=== PATIENT | female | born 1980 | race Caucasian/White ===

== ENCOUNTER 2020-08-15 17:27 | Emergency (ER) | payer OTHER, SELFPAY ==
--- NOTE | ~2020-08-15 | XR_ITS ---
EXAMINATION: XR chest 2V DATE: 08/15/2020 18:57 INDICATION: Left anterior chest and shoulder pain TECHNIQUE: PA and lateral views of the chest are obtained. COMPARISON: None available FINDINGS: The lungs are free of acute opacities. There is no pleural effusion or pneumothorax. The ca rdiomediastinal silhouette is normal. There are 27 degrees of upper lumbar dextroscoliosis. IMPRESSION: 1. No acute cardiopulmonary abnormality. Reviewed, dictated and finalized at location A. RELEASE WORKER
--- NOTE | ~2020-08-15 | XR_ITS ---
EXAMINATION: XR shoulder LT min 2V INDICATION: Left shoulder pain TECHNIQUE: Four views of the left shoulder are submitted. COMPARISON: None FINDINGS: Normal alignment. No fracture. Glenohumeral and acromioclavicular joint spaces are normal. Soft tissues are unremarkable. IMPRESSION: 1. No acute osseous abnormality. Reviewed, dictated and finalized at location A. SETTER
--- NOTE | 2020-08-15 17:29 | ECG_ITS ---
Measurements Intervals [place] Rate: 80 P: 55 PA: 165 QRS: 22 QRSD: 85 T: 40 QT: 345 QTc: 399 Interpretive Statements SINUS RHYTHM WITH SINUS ARRHYTHMIA POSSIBLE LEFT ATRIAL ENLARGEMENT INCOMPLETE RIGHT BUNDLE BRANCH BLOCK BASELINE WANDER- III, V1-V3 BORDERLINE ECG Electronically Signed On 08-15-2020 19:28:46 CONSOLE ASSEMBLER by Saul Zapata D.O.
[2020-08-15 17:37] VITALS: BP 137/99; PULSE 79; RESP 17; TEMP 36.2; O2SAT 100
--- NOTE | 2020-08-15 18:15 | ED.DIZZY ---
HPI - Dizziness General Chief Complaint: Dizziness Stated Complaint: Dizziness , left shoulder pain Time Seen by Provider: 08/15/20 18:15 Source: patient Mode of arrival: ambulatory Limitations: no limitations History of Present Illness HPI Narrative: Patient is a 40 yo female who is presenting for evaluation of dizziness. Dizziness is intermittent in nature, associated with a spinning sensation. No nausea or vomiting. Pt states she feels as if she is on a merry go round. Pt also reporting a dull pain in her left shoulder. No pressure or injury. No associated chest pain, dyspnea, nausea or vomiting. No vision changes. No aggravating or relieving symptoms. No numbness or weakness. Pt has been ambulating. Related Data Allergies Allergy/AdvReac Type Severity Reaction Status Date / Time No Known Allergies Allergy Unverified 03/07/14 09:08 Review of Systems Review of Systems: Narrative: CONSTITUTIONAL: Denies fever EYES: Denies visual changes ENT: Denies rhinorrhea, congestion, sore throat, or otalgia. CARDIOVASCULAR: Denies chest pain, palpitations, or edema. RESPIRATORY: Denies cough or dyspnea. GASTROINTESTINAL: Denies abdominal pain, nausea, vomiting, or diarrhea. GENITOURINARY: Denies dysuria or hematuria. SKIN: Denies rash or itching. MUSCULOSKELETAL: Denies back pain, joint pain, or myalgia. NEUROLOGIC: Denies headache, numbness, or weakness. Reports intermittent dizziness PMFSH Past Medical History Medical History (Updated 08/15/20 @ 20:02 by Mavis Castrejon MD) Nephrolithiasis Surgical History Surgical History (Updated 08/15/20 @ 18:31 by Mavis Castrejon MD) History of hysterectomy Social History Social History (Updated 08/15/20 @ 18:31 by Mavis Castrejon MD) Smoking status: Never smoker Substance use: never Living arrangements: with family Gender identity (if verbalized by the patient): Female Exam Narrative: Exam Narrative: GENERAL: Awake, alert, conversant HEAD: Normocephalic, atraumatic. EYES: PERRLA and EOMI. ENT: Nares clear, no rhinorrhea or epistaxis. Mucous membranes moist. TMs are clear bilaterally. NECK: Supple. CHEST: No respiratory distress, breathing even and non labored HEART: Regular rate, sinus rhythm ABDOMEN:Non distended, non tender EXTREMITIES: Normal range of motion. No edema. SKIN: Warm, dry, no rash. NEURO:No focal deficits. Alert and oriented x3. Finger to nose intact bilaterally. EOMs intact without nystagmus. No facial droop/asymmetry noted bilaterally. Grimace intact. Intact sensation in face. Hearing intact bilaterally. Shoulder shrug intact. Strength 5/5 bilateral upper extremities. Strength 5/5 bilateral lower extremities. Reflexes 2+ patellar. Heel to moses intact bilaterally. Ambulatory with a narrow base, steady gait, no ataxia. Course Vital Signs Vital signs: Vital Signs Temperature 36.2 C L 08/15/20 17:37 Pulse Rate 79 08/15/20 17:37 Respiratory Rate 17 08/15/20 17:37 Blood Pressure 137/99 H 08/15/20 17:37 Pulse Oximetry 100 08/15/20 17:37 Temperature 36.2 C L 08/15/20 17:37 Pulse Rate 79 08/15/20 17:37 Respiratory Rate 17 08/15/20 17:37 Blood Pressure 137/99 H 08/15/20 17:37 Pulse Oximetry 100 08/15/20 17:37 MDM - Dizziness MDM Narrative Medical decision making narrative: The patient was evaluated for dizziness. Based on neurological assessment and clinical symptoms, patient's vertigo is felt to be likely peripheral in origin. There is no diplopia, dysarthria or dysphagia. Patient's gait is stable and there are no cerebral deficits to exam. Risk factor for central causes of vertigo reviewed and felt to be unlikely. Patient is ambulatory with a narrow base, steady gait without ataxia. Her shoulder pain is possibly musculoskeletal, she does not have any chest pain, shortness of breath, no signs of PE. Patient felt likely reasonable for continued outpatient management and risks are felt to outweigh benefits for further
[2020-08-15 19:17] LABS: Basophils Percent Auto 0.4 % (0.2-1.2); Eosinophils Absolute Auto 0.2 K/mm3 (0-0.3); Eosinophils Percent Auto 1.5 % (0-4.4); Hematocrit 43.4 % (37.0-47.0); Hemoglobin 15.1 g/dL (12.0-15.0); Immature Granulocyte Absolute 0.02 K/mm3 (0.00-0.031); Immature Granulocyte Percent A 0.2 % (0-0.5); Lymphocytes Absolute Auto 2.47 K/mm3 (0.9-3.2); Lymphocytes Percent Auto 25.4 % (18.3-44.2); Mean Corpuscular HGB Conc 34.8 g/dl (32-36); Mean Corpuscular Hemoglobin 31.1 pg (26-34); Mean Corpuscular Volume 89.3 fl (80-100); Mean Platelet Volume 10.5 fl (7.4-10.4); Monocytes Absolute Auto 0.5 K/mm3 (0.1-0.6); Monocytes Percent Auto 4.8 % (2.6-8.5); Neutrophils Absolute Auto 6.6 K/mm3 (1.3-6.7); Neutrophils Percent Auto 67.7 % (45.5-73.1); Platelet Count Result 184 k/mm3 (150-375); Red Blood Count 4.86 M/mm3 (4.2-5.4); Red Cell Distribution Width 11.9 % (11.5-14.5); White Blood Count 9.7 K/mm3 (4.5-10.0)
[2020-08-15] MEDS: MECLIZINE HCL 25 MG TABLET PO (19:17)
[2020-08-15 19:30] LABS: Anion Gap 7 mmol/L (8-16); Blood Urea Nitrogen 9 mg/dL (7-17); Calcium 9.5 mg/dL (8.4-10.2); Carbon Dioxide 29 mmol/L (22-30); Chloride 104 mmol/L (98-107); Estimated CRCL calculation 93 ml/min; Estimated Glomerular Filt Rate > 60; Glucose 101 mg/dL (65-105); Potassium 3.9 mmol/L (3.4-5.0); Sodium 140 mmol/L (137-145)
[2020-08-15 19:34] LABS: INR 0.9; Prothrombin Time 12.5 Seconds (11.1-14.7)
[2020-08-15 19:35] LABS: Partial Thromboplastin Time 24.1 SECONDS (22.3-36.8)
[2020-08-15 19:41] LABS: Troponin I < 0.012 ng/mL (0.000-0.034)
[2020-08-15 20:57] VITALS: BP 128/100; PULSE 75; RESP 17; O2SAT 100
== END 2020-08-15 21:02 | disposition home or self-care (01) ==
PROVIDERS: Emergency Provider Emergency Medicine; PCP Emergency Medicine
DX: H81.10 Benign paroxysmal vertigo, unspecified ear (principal); Z87.442 Personal history of urinary calculi; I45.10 Unspecified right bundle-branch block; R94.31 Abnormal electrocardiogram [ECG] [EKG]
CPT/HCPCS: 36415; 71046; 73030; 80048; 84484; 85025; 85610; 85730; 93005; 99284; A9270

== ENCOUNTER 2020-09-20 13:13 | Outpatient (CLI) | payer OTHER, SELFPAY ==
--- NOTE | 2020-09-20 | ECHO_ITS ---
Patient Info Name: Erin Delacruz Age: 40 years : 1980 Gender: Female Ht: 64 in Wt: 142 lbs BSA: 1.72 m2 HR: 63 bpm BP: 128 / 90 mmHg Technical Quality: Good Exam Date: 09/20/2020 1:44 PM Exam Location: [facility] Patient Status: Outpatient Admit Date: 09/20/2020 Staff Ordering Physician: Trever Araya MD Electrotype Finisher: Luther Sanchez RDCS Attending Provider: Trever Araya MD Referring Physician: Marshal BACA; Exam Type: CA echo doppler color flow Study Info Indications I45.10 - Unspecified right bundle-branch block Complete two-dimensional, color flow and Doppler transthoracic echocardiogram is performed. Strain analysis performed. Summary 1. Complete two-dimensional, color flow and Doppler transthoracic echocardiogram is performed. 2. Left ventricular chamber dimension is normal. 3. Left ventricular systolic function is normal, estimated at 65-70%. 4. The left ventricular diastolic function is normal. 5. E/e' 8 is minimally elevated. 6. Global longitudinal strain is normal at -20.0%. 7. There is trace tricuspid valve regurgitation. 8. No pulmonary hypertension, estimated pulmonary arterial systolic pressure is 27 mmHg. Left Ventricle E/e' 8 is minimally elevated. Global longitudinal strain is normal at -20.0%. Left ventricular chamber dimension is normal. Left ventricular systolic function is normal, estimated at 65-70%. The left ventricular diastolic function is normal. Right Ventricle Right ventricular chamber dimension is normal. Right ventricular systolic function is normal. Left Atria Left atrial chamber dimension is normal. Right Atria Right atrial chamber dimension is normal. Aortic Valve The aortic valve is trileaflet. There is no aortic valve stenosis. There is no aortic valve regurgitation. Pulmonic Valve There is no pulmonic regurgitation. Mitral Valve There is no mitral valve stenosis. There is no mitral valve regurgitation. Tricuspid Valve There is trace tricuspid valve regurgitation. No pulmonary hypertension, estimated pulmonary arterial systolic pressure is 27 mmHg. Pericardium/Pleural There is no pericardial effusion. Inferior Vena Cava Normal inferior vena cava with >50% collapse upon inspiration consistent with normal right atrial pressure, 5 mmHg. Aorta The aortic root size at the sinus of Valsalva is normal. Left Ventricular Outflow Tract Name Value Normal LVOT 2D LVOT Diameter 2.0 cm LVOT Doppler LVOT Peak Gradient 4 mmHg LVOT Mean Gradient 2 mmHg LVOT VTI 20 cm LVOT VTI/AV VTI Ratio 0.9 LVOT Stroke Volume 60 ml LVOT CO 4.4 l/min LVOT CI 2.6 l/min/m2 Mitral Valve Name Value Normal MV Doppler
== END 2020-09-20 13:14 | disposition home or self-care (01) ==
PROVIDERS: PCP Emergency Medicine; Visit Provider Emergency Medicine
DX: I45.10 Unspecified right bundle-branch block (principal)
CPT/HCPCS: 93306

== ENCOUNTER → 2022-04-15 08:01 | Outpatient (CLI) | payer OTHER, SELFPAY ==
--- NOTE | ~2022-04-15 | US_ITS ---
US abdomen complete EXAMINATION: US Abdomen Complete INDICATION: Abdomen pain. PROCEDURE: Realtime High Resolution abdomen ultrasound. COMPARISON: No prior studies for comparison FINDINGS: There is a 4 mm gallbladder polyp. No gallstones, gallbladder wall thickening or pericholec ystic fluid. Common bile duct measures 4 mm. Liver echotexture within normal limits without focal mass. Pancreas within normal limits. Pancreati c tail is obscured by bowel gas. Spleen is enlarged measuring 13 cm. Renal echotexture is within nor mal limits bilaterally without hydronephrosis, contour deforming mass or renal stone. Right kidney me asures 10.3 cm. Left kidney measures 10.4 cm. Visualized aspects of the aorta and IVC are within normal limits. Portal vein is patent. No sonograph ic Raya's sign indicated by the technologist. IMPRESSION: 1: Gallbladder polyp measuring 4 mm. 2: Splenomegaly. Reviewed, dictated and finalized at location A.
== END ==
PROVIDERS: PCP Emergency Medicine; Visit Provider Emergency Medicine
DX: R10.9 Unspecified abdominal pain (principal); K82.4 Cholesterolosis of gallbladder; R16.1 Splenomegaly, not elsewhere classified
CPT/HCPCS: 76700

== ENCOUNTER → 2022-05-23 14:46 | Outpatient (CLI) | payer OTHER, SELFPAY ==
--- NOTE | ~2022-05-23 | MM_ITS ---
EXAMINATION: MM screening luis a BI w ibeth HISTORY: Screening mammogram TECHNIQUE: Craniocaudal and mediolateral oblique 3-D tomosynthesis images were obtained and synthetic 2-D images were generated. Bilateral rotated lateral CC views. CAD analysis was submitted and interp reted. COMPARISON: No prior mammogram is available for comparison at this institution. BREAST PARENCHYMAL COMPOSITION: The breasts are heterogeneously dense, which may obscure small masses . FINDINGS: There is no evidence of suspicious mass, calcification, or architectural distortion to sugg est malignancy in either breast. There has been no suspicious interval change. IMPRESSION: 1. No mammographic evidence of malignancy. 2. Recommend routine screening mammography in one year. BI-RADS Category 1: Negative Reviewed, dictated and finalized at location A.
== END ==
PROVIDERS: PCP Emergency Medicine; Visit Provider Nurse Practitioner
DX: Z12.31 Encounter for screening mammogram for malignant neoplasm of breast (principal)
CPT/HCPCS: 77063; 77067

== ENCOUNTER → 2023-03-13 08:34 | Outpatient (CLI) | payer OTHER, BC, SELFPAY ==
--- NOTE | ~2023-03-13 | US_ITS ---
Pelvic ultrasound. Clinical History: Pelvic pain Technique: Realtime transabdominal and transvaginal scanning of the pelvis was performed. Color flow Doppler and Doppler spectral analysis were performed. Findings: The uterus is absent, compatible prior hysterectomy. The right ovary measures 3.3 x 2.3 x 1.9 cm. No significant right ovarian or adnexal mass is seen. The left ovary measures 5.0 x 6.0 x 3.2 cm. Left ovarian cystic mass measures 4.5 cm in diameter, wit h low-level internal echoes.. There is no evidence of free fluid in the cul de sac. Impression: 4.5 cm left ovarian cyst, with low-level internal echoes. Consider hemorrhagic cyst or endometrioma. Status post hysterectomy. Reviewed, dictated and finalized at location . Impression: 4.5 cm left ovarian cyst, with low-level internal echoes. Consider hemorrhagic cyst or endometrioma. Status post hysterectomy.
--- NOTE | ~2023-03-13 | US_ITS ---
Limited Abdominal Sonogram: Real-time sonographic imaging of the right upper quadrant was performed. Clinical History: Gallbladder polyp Findings: The liver appears normal with no evidence of mass lesion or bile duct dilatation. Main por antonette vein demonstrates normal direction of flow. The gallbladder is well distended, with 5 mm gallblad wendy wall polyp. The common bile duct measures 4 mm. The visualized pancreas, aorta, and IVC are unre markable. Impression: 5 mm gallbladder wall polyp. Reviewed, dictated and finalized at location . Impression: 5 mm gallbladder wall polyp.
== END ==
PROVIDERS: PCP Emergency Medicine; Visit Provider Nurse Practitioner
DX: R10.2 Pelvic and perineal pain (principal); R19.09 Other intra-abdominal and pelvic swelling, mass and lump; N83.202 Unspecified ovarian cyst, left side; Z90.710 Acquired absence of both cervix and uterus; K82.4 Cholesterolosis of gallbladder
CPT/HCPCS: 76705; 76830

== ENCOUNTER → 2023-05-09 14:16 | Outpatient (CLI) | payer OTHER, BC, SELFPAY ==
--- NOTE | ~2023-05-09 | US_ITS ---
EXAMINATION: US pelvic complete w TV DATE: 05/09/2023 14:44 INDICATION: Ovarian cyst. TECHNIQUE: Multiple transabdominal and transvaginal sonographic images of the pelvis were obtained. COMPARISON: Ultrasound 03/13/23 FINDINGS: TRANSABDOMINAL ULTRASOUND: The uterus is absent. There is no free fluid in the pelvis. TRANSVAGINAL ULTRASOUND: The right ovary measures 2.4 x 1.7 x 3.0 cm. The left ovary measures 5.4 x 4.9 x 4.2 cm. In the left ovary, there is a 4.4 cm mixed hypoechoic and isoechoic mass. There is vascular flow in the ovaries. IMPRESSION: 1. 4.4 cm mass in left ovary with change in echogenicity from 03/13/2023 without change in size. The di fferential diagnosis includes endometrioma and hemorrhagic cyst. Neoplasm cannot be excluded. Conside r pelvis MRI without and with contrast. Reviewed, dictated and finalized at location E. IMPRESSION: 1. 4.4 cm mass in left ovary with change in echogenicity from 03/13/2023 without change in size. The differential diagnosis includes endometrioma and hemorrhagi c cyst. Neoplasm cannot be excluded. Consider pelvis MRI without and with contr ast.
== END ==
PROVIDERS: PCP Emergency Medicine; Visit Provider Obstetrics & Gynecology Gynecology
DX: N83.202 Unspecified ovarian cyst, left side (principal)
CPT/HCPCS: 76830; 76856

== ENCOUNTER → 2023-08-11 14:14 | Outpatient (CLI) | payer OTHER, BC, SELFPAY ==
--- NOTE | ~2023-08-11 | US_ITS ---
EXAMINATION: US pelvic complete w TV DATE: 08/11/2023 14:39 INDICATION: Follow-up left ovarian cyst. Comparison:Ultrasound dated 05/09/2023 TECHNIQUE: Multiple transabdominal and endovaginal sonographic images of the pelvis performed. FINDINGS: The uterus is surgically absent. The right ovary measures 2.9 x 2.8 x 1.6 cm and the left ovary measures 4.6 x 4.2 x 3.9 cm. There is a persistent complicated cyst with low-level internal echoes within the left ovary measuring 3.9 x 3. 7 x 3.3 cm. There is no free fluid in the pelvis. There are no abnormal masses seen on either side. IMPRESSION: 1. Persistent complicated cyst of the left ovary measuring 3.9 cm. Reviewed, dictated and finalized at location B. NIC PREPARATION TECHNICIAN
== END ==
PROVIDERS: PCP Emergency Medicine; Visit Provider Obstetrics & Gynecology Gynecology
DX: N83.292 Other ovarian cyst, left side (principal)
CPT/HCPCS: 76830; 76856

== ENCOUNTER 2023-12-19 15:02 | Outpatient (CLI) | payer OTHER, BC, SELFPAY ==
--- NOTE | ~2023-12-19 | MM_ITS ---
EXAMINATION: MM screening luis a BI w ibeth HISTORY: Screening TECHNIQUE: Craniocaudal and mediolateral oblique 3-D tomosynthesis images were obtained and synthetic 2-D images were generated. CAD analysis was submitted and interpreted. COMPARISON: 05/23/2022 BREAST PARENCHYMAL COMPOSITION: Dense: The breasts are heterogeneously dense, which may obscure small masses FINDINGS: There is no evidence of suspicious mass, calcification, or architectural distortion to sugg est malignancy in either breast. There has been no suspicious interval change. IMPRESSION: 1. No mammographic evidence of malignancy. 2. Recommend routine screening mammography in one year. BI-RADS Category 1: Negative Reviewed, dictated and finalized at location A.
== END 2023-12-19 15:03 ==
PROVIDERS: PCP Nurse Practitioner; Visit Provider Nurse Practitioner
DX: Z12.31 Encounter for screening mammogram for malignant neoplasm of breast (principal)
CPT/HCPCS: 77063; 77067

== ENCOUNTER 2024-02-12 09:38 | Outpatient (CLI) | payer OTHER, BC, SELFPAY ==
--- NOTE | ~2024-02-12 | US_ITS ---
US pelvic complete w TV Ordering provider: Pepper Acosta MD History: . L ovarian cyst . Comparison: None. Technique: Transabdominal and endovaginal ultrasound of the pelvis (Doppler ultrasound interrogation techniques used as needed for this exam.) FINDINGS: CERVIX: Normal. UTERUS: Status post hysterectomy. CUL DE SAC: No free fluid. RIGHT OVARY: Normal in size measuring 2.8 x 2.6 x 1.8 cm. Normal echotexture. Doppler vascular flow p resent. LEFT OVARY: Normal in size measuring 5.4 x 4.4 x 4.5 cm. . Doppler vascular flow present. Left ovaria n cyst measuring 4.2 x 3.3 x 3.9 cm with internal echoes and solid part which may be ovarian tissue o r a mass follow-up is advised... ADNEXA: Normal. No mass. IMPRESSION: Left ovarian cyst measuring 4.2 x 3.3 x 3.9 cm with internal echoes and possibly solid portion. The d ifferential includes hemorrhagic cyst. A cystic mass cannot be excluded. Follow-up in 3 months advise d. Otherwise, normal pelvic ultrasound. Reviewed, dictated and finalized at location A. IMPRESSION: Left ovarian cyst measuring 4.2 x 3.3 x 3.9 cm with internal echoes and possibl y solid portion. The differential includes hemorrhagic cyst. A cystic mass yeyo ot be excluded. Follow-up in 3 months advised. Otherwise, normal pelvic ultraso und.
== END 2024-02-12 09:39 ==
LOC: GOSHIMG 09:39
PROVIDERS: PCP Emergency Medicine; Visit Provider Obstetrics & Gynecology Gynecology
DX: N83.202 Unspecified ovarian cyst, left side (principal)
CPT/HCPCS: 76830; 76856

== ENCOUNTER 2024-03-22 08:16 | Outpatient (CLI) | payer OTHER, BC, SELFPAY ==
--- NOTE | ~2024-03-22 | US_ITS ---
Limited Abdominal Sonogram: Real-time sonographic imaging of the right upper quadrant was performed. Clinical History: Cholesterolosis of gallbladder COMPARISON: 03/13/2023 Findings: The liver appears normal with no evidence of mass lesion or bile duct dilatation. Main por antonette vein demonstrates normal direction of flow. There is 6 mm gallbladder wall polyp. No gallstone ev ident. The common bile duct measures 5 mm. The visualized pancreas, aorta, and IVC are unremarkable. Impression: 6 mm gallbladder wall polyp, similar to prior exam. Reviewed, dictated and finalized at location M. Impression: 6 mm gallbladder wall polyp, similar to prior exam.
== END 2024-03-22 08:17 ==
LOC: GOSHIMG 08:17
PROVIDERS: PCP Emergency Medicine; Visit Provider Surgery
DX: K82.4 Cholesterolosis of gallbladder (principal)
CPT/HCPCS: 76705

== ENCOUNTER 2024-06-04 14:20 | Outpatient (CLI) | payer OTHER, BC, SELFPAY ==
--- NOTE | ~2024-06-04 | US_ITS ---
EXAMINATION: US pelvic complete w TV INDICATION: 3 month follow-up left ovarian cyst. Comparison:No prior studies for comparison. TECHNIQUE: Multiple transabdominal and endovaginal sonographic images of the pelvis performed. FINDINGS: The uterus is surgically absent. There is a left ovarian cyst with low level internal echoe s measuring 4.2 x 4.2 x 3.2 cm, likely hemorrhagic. The right ovary measures 1.9 x 2.1 x 2.8 cm and the left ovary measures 5.6 x 4.7 x 3.9 cm. There ar e small follicles in each ovary. Normal doppler signal in both ovaries. There is no free fluid in the pelvis. There are no abnormal masses seen on either side. IMPRESSION: 1. Left ovarian cyst measuring 4.2 cm, likely hemorrhagic. Reviewed, dictated and finalized at location B.
== END 2024-06-04 14:21 | disposition home or self-care (01) ==
LOC: GOSHIMG 14:21
PROVIDERS: PCP Emergency Medicine; Visit Provider Obstetrics & Gynecology Gynecology
DX: N83.202 Unspecified ovarian cyst, left side (principal)
CPT/HCPCS: 76830; 76856

== ENCOUNTER 2024-09-17 11:14 | Emergency (ER) | payer OTHER, BC, SELFPAY ==
--- NOTE | 2024-09-17 11:29 | ED.URI ---
HPI - URI/Sore Throat General Chief Complaint: Upper Respiratory Infection Stated Complaint: sorethroat,bilateral ear pain Time Seen by Provider: 09/17/24 11:30 Source: patient Mode of arrival: ambulatory Limitations: no limitations History of Present Illness HPI Narrative: Erin is a 44-year-old female patient presenting to the clinic today with complaints of sore throat, bilateral ear pain, and headache. She reports symptoms started with some ear pain 6 days ago. Developed a headache 3 days ago and states sore throat started yesterday. She denies any recorded fever but has had some chills and sweats. Denies any chest pain or shortness of breath. No known sick contacts. MD elicited complaint: sore throat and nasal congestion Related Data Home Medications ?Medication ?Instructions ?Recorded ?Confirmed ?Last Taken ?Type multivitamin (Daily Multi-Vitamin 1 tablet PO DAILY 10/13/20 04/07/23 Unknown History tablet) cholecalciferol (vitamin D3) 25 25 mcg PO DAILY 04/07/23 04/07/23 Unknown History mcg (1,000 unit) tablet melatonin 10 mg capsule 10 mg PO QHS 04/07/23 04/07/23 Unknown History Allergies Allergy/AdvReac Type Severity Reaction Status Date / Time No Known Allergies Allergy Verified 09/17/24 11:23 Review of Systems Review of Systems: Pertinent positives per HPI. Patient denies any fever, rash, visual changes, dizziness, cough, shortness of breath, chest pain, palpitations, nausea, vomiting, diarrhea, constipation, abdominal pain, or any urinary issues. [facility] Past Medical History Medical History Hyperlipidemia Right bundle branch block Vertigo Nephrolithiasis Surgical History Surgical History History of lithotripsy History of partial hysterectomy History of bilateral tubal ligation Family History Family History Father Coronary artery disease COPD (chronic obstructive pulmonary disease) Mother Hyperlipidemia Other Diabetes mellitus Social History Social History Smoking status: Never smoker Alcohol intake: current Alcohol use details: Social alcohol use Substance use: never Living arrangements: with family Occupation/Education: occupation 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 There is no relevant family history pertinent to the patient complaint. Exam Narrative: General: Well-developed, well nourished, in no apparent distress Head: Normocephalic, atraumatic Eyes: Pupils equally round and reactive to light bilaterally, EOM intact, sclera and conjunctive clear, no discharge, lids normal Ears: TMs intact and congested, ear canals clear, no drainage, grossly hearing normal. Nose: Nares patent, clear nasal discharge, no inflammation, no sinus tenderness. Mouth: Oral pharynx red without lesions or masses, good dentition, MMM. Postnasal drip Neck: Supple, trachea midline, no enlargement of anterior or posterior cervical nodes, no thyroid masses or goiter palpable. Cardio: Regular rate and rhythm, s1 and s2 normal, no murmur appreciated. Resp: Clear to auscultation bilaterally, no rhonchi, rales, wheezing or rubs Course Course Emergency Course: Portions of this record may have been created with voice recognition software. Level of Care: Express Care Visit Vital Signs Vital signs: Vital Signs Temperature 36.6 C 09/17/24 11:31 Pulse Rate 74 09/17/24 11:31 Respiratory Rate 16 09/17/24 11:31 Blood Pressure 114/74 09/17/24 11:31 Pulse Oximetry 100 09/17/24 11:31 Temperature 36.6 C 09/17/24 11:31 Pulse Rate 74 09/17/24 11:31 Respiratory Rate 16 09/17/24 11:31 Blood Pressure 114/74 09/17/24 11:31 Pulse Oximetry 100 09/17/24 11:31 Vital signs reviewed MDM - URI/Sore Throat MDM Narrative Medical decision making narrative: At the time of visit patient is resting comfortably on the exam table. Patient appears to be nontoxic. Labs: Strep test was performed and was negative in the clinic today. Plan: I suspect patient has URI/pharyngitis/postnasal drip. Prescription for prednisone was sent to the pharmacy. Work note was given. Supportive measures were discussed with the patient and they voiced understanding discharge instructions and agrees to treatment plan. Return precautions reviewed Differential Diagnosis Differential diagnosis: Likely upper respiratory infection, otitis media, sinusitis, viral infection, bronchitis, influenza, pharyngitis and other (COVID) Discharge Plan Discharge Clinical Impression: Viral infection Upper respiratory infection Qualifiers: URI type: unspecified URI Qualified Code(s): J06.9 - Acute upper respiratory infection, unspecified Pharyngitis Qualifiers: Pharyngitis/tonsillitis etiology: unspecified etiology Qualified Code(s): J02.9 - Acute pharyngitis, unspecified Patient Disposition: Home, Self-Care Condition: Stable Instructions: Antibiotic Form, Pharyngitis (ED), Cold Symptoms (ED) Additional Instructions: Strep test was negative in the clinic today. We will send strep for culture. Take prescription medications only as prescribed-prednisone Increase fluids and stay well hydrated Tylenol/motrin for pain/fever Flonase and OTC antihistamines as directed Vicks vapor rub to open sinuses Sinus rinses for congestion Cepacol spray, cough drops, throat lozenges, warm tea with honey/lemon, gargle salt water to soothe throat BRAT diet for diarrhea Clear liquids x 24 hours then advance as tolerated for nausea/vomiting Go to the ED if you develop a worsening in your condition- high fever not controlled by Tylenol or Motrin, dehydration, weakness, lethargy, shortness of breath, or chest pain. Follow up with your PCP in 3-5 days if symptoms persist. Patient Language: French Prescriptions: New prednisone 20 mg tablet 40 mg PO DAILY 5 Days Qty: 10 0RF No Action melatonin 10 mg capsule 10 mg PO QHS cholecalciferol (vitamin D3) 25 mcg (1,000 unit) tablet 25 mcg PO DAILY multivitamin [Daily Multi-Vitamin] Tablet 1 tablet PO DAILY Follow-up/Referrals: Trever Araya MD [Primary Care Provider] - Stand Alone Forms: Work/School Release IP Time of Disposition: 11:37 Quality NIHSS Nursing Documentation ED NIHSS nursing documentation: reviewed/agree
[2024-09-17 11:31] VITALS: BP 114/74; PULSE 74; RESP 16; TEMP 36.6; O2SAT 100
[2024-09-17 11:39] LABS: EDSTREPNEGPOS1 Negative (Negative)
== END 2024-09-17 11:44 | disposition home or self-care (01) ==
PROVIDERS: Emergency Provider Nurse Practitioner Family; PCP Emergency Medicine
DX: J06.9 Acute upper respiratory infection, unspecified (principal); B97.89 Other viral agents as the cause of diseases classified elsewhere
CPT/HCPCS: 87081; 87880; 99213; G0463

== ENCOUNTER 2024-10-21 14:40 | Outpatient (CLI) | payer OTHER, BC, SELFPAY ==
--- NOTE | ~2024-10-21 | US_ITS ---
EXAM: PELVIC ULTRASOUND HISTORY: OVARIAN CYST COMPARISON: 06/04/2024, 02/12/2024 and 08/11/2023. FINDINGS: UTERUS: Surgically absent. RIGHT OVARY: The right ovary is unremarkable in echogenicity and size measuring 2.6 x 1.9 x 2.9 cm. Dopplerable flow is identified. LEFT OVARY: The left ovary measures 4.9 x 5.6 x 3.9 cm Dopplerable flow is identified. Redemonstration of a well-circumscribed primarily isoechoic, avascular structure measuring 5.6 x 4.9 x 2.9 cm. This is compared to 4.2 x 4.2 x 3.2 cm on 06/04/2024; and 4.2 x 3.3 x 3.9 cm on 02/12/2024; and 3.9 x 3.7 x 3.3 cm on 08/11/2023. No free fluid is identified within the pelvis. IMPRESSION: Typically, hemorrhagic cysts are reabsorbed by the body over a period of months. While the morphology of this enlarging cyst within the left ovary may be similar to a hemorrhagic cys t, its behavior is not. QUALITY IMPROVEMENT ENGINEER surgical consultation is suggested. Reviewed, dictated and finalized at location A. CRUSHING MACHINE OPERATOR IMPRESSION: Typically, hemorrhagic cysts are reabsorbed by the body over a period of months . While the morphology of this enlarging cyst within the left ovary may be simila r to a hemorrhagic cyst, its behavior is not. QUALITY IMPROVEMENT ENGINEER surgical consultation is suggested.
== END 2024-10-21 14:41 | disposition home or self-care (01) ==
LOC: GOSHIMG 14:40
PROVIDERS: PCP Emergency Medicine; Visit Provider Obstetrics & Gynecology Gynecology
DX: N83.202 Unspecified ovarian cyst, left side (principal)
CPT/HCPCS: 76830; 76856

== ENCOUNTER 2025-01-07 14:23 | Emergency (ER) | payer OTHER, BC, SELFPAY ==
[2025-01-07 14:32] VITALS: BP 142/89; PULSE 82; RESP 16; TEMP 36.6; O2SAT 100
--- NOTE | 2025-01-07 14:54 | ED.FEMALEGU ---
HPI - Female Genitourinary General Chief complaint: Urogenital-Female Stated complaint: Vaginal Irritation Time Seen by Provider: 01/07/25 14:28 Source: patient Mode of arrival: ambulatory Limitations: no limitations History of Present Illness HPI Narrative: Patient presents to Express Care with complaints of vaginal burning and itching that has been present for one month. She states that she tried a new soap a month ago and thought it was from that. She did try Monistat [id number], but symptoms still are present. She denies any need for STD testing. Related Data Home Medications ?Medication ?Instructions ?Recorded ?Confirmed ?Last Taken ?Type multivitamin (Daily Multi-Vitamin 1 tablet PO DAILY 10/13/20 04/07/23 Unknown History tablet) cholecalciferol (vitamin D3) 25 25 mcg PO DAILY 04/07/23 04/07/23 Unknown History mcg (1,000 unit) tablet melatonin 10 mg capsule 10 mg PO QHS 04/07/23 04/07/23 Unknown History Allergies Allergy/AdvReac Type Severity Reaction Status Date / Time No Known Allergies Allergy Verified 01/07/25 14:36 Review of Systems Review of Systems: CONSTITUTIONAL: Denies body aches, fever, chills, or sweats. EYES: Denies visual changes, redness, or discharge. ENT: Denies rhinorrhea, congestion, sore throat, or otalgia. CARDIOVASCULAR: Denies chest pain, palpitations, or edema. RESPIRATORY: Denies cough or dyspnea. GASTROINTESTINAL: Denies abdominal pain, nausea, vomiting, or diarrhea. GENITOURINARY: Reports burning on vulva and itching and burning to vagina. SKIN: Denies rash, itching, or wounds. MUSCULOSKELETAL: Denies back pain, joint pain, or myalgia. NEUROLOGIC: Denies headache, numbness, tingling, or weakness. PSYCH: ?Denies depression or anxiety. All systems reviewed & are unremarkable except as noted in HPI and below PMFSH Past Medical History Medical History Hyperlipidemia Right bundle branch block Vertigo Nephrolithiasis Surgical History Surgical History History of lithotripsy History of partial hysterectomy History of bilateral tubal ligation Family History Family History Father Coronary artery disease COPD (chronic obstructive pulmonary disease) Mother Hyperlipidemia Other Diabetes mellitus Social History Social History Smoking status: Never smoker Alcohol intake: current Alcohol use details: Social alcohol use Substance use: never Living arrangements: with family Occupation/Education: occupation 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 Please see nursing chart for further information. There is no relevant family history pertinent to the presenting complaint. Exam Narrative: GENERAL: Well-appearing, well-nourished, and in no acute distress. HEAD: Normocephalic, atraumatic. EYES: EOMI. ?No redness or drainage. Conjunctivae normal. ENT: Mucous membranes pink and moist. ?No rhinorrhea. ?TMs normal bilaterally. ?Throat normal. Uvula midline. NECK: Normal AROM. ?Supple. ?No lymphadenopathy. CHEST: ?No respiratory distress. Clear to auscultation. HEART: Regular rate and rhythm. No murmur appreciated. Normal peripheral pulses. ABDOMEN: Soft, nontender, nondistended, normal active bowel sounds. MUSCULOSKELETAL: ?No bony tenderness. EXTREMITIES: Normal range of motion. No edema. SKIN: Warm, dry, no rash. Capillary refill normal. ?Normal skin turgor. : Erythema vulva with white clumpy discharge. 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 NEURO: No focal deficits. Alert and oriented x3. Gait steady. PSYCH: ?Normal affect. ?No signs of depression or anxiety. Course Course Level of Care: Express Care Visit Vital Signs Vital signs: Vital Signs Temperature 97.9 F 01/07/25 14:32 Pulse Rate 82 01/07/25 14:32 Respiratory Rate 16 01/07/25 14:32 Blood Pressure 142/89 H 01/07/25 14:32 Pulse Oximetry 100 01/07/25 14:32 Temperature 97.9 F 01/07/25 14:32 Pulse Rate 82 01/07/25 14:32 Respiratory Rate 16 01/07/25 14:32 Blood Pressure 142/89 H 01/07/25 14:32 Pulse Oximetry 100 01/07/25 14:32 Reviewed. MDM - Female Genitourinary MDM Narrative Medical decision making narrative: Discussed physical exam findings. Swabbed patient for BV. Treated patient with metronidazole and fluconazole for yeast infection and BV. Advised supportive measures and signs/symptoms to go to the ER. Pt is appropriate for outpatient treatment and follow up. Differential Diagnosis Differential diagnosis: Likely urinary tract infection, bacterial vaginosis, vaginitis and other (yeast infection.) Critical Care Time Critical Care Time Critical Care Time: No Discharge Plan Discharge Clinical Impression: Bacterial vaginal infection Patient Disposition: Home Condition: Stable Instructions: Antibiotic Form, Bacterial Vaginosis (ED) Additional Instructions: Take medication as directed- you are covered for BV and yeast infection Bacterial vaginosis happens when bacteria usually found in the vagina grows too much. This growth upsets the balance of good and bad bacteria in the vagina. It tends to come back within 3 to 12 months. - practice safe sex by using condoms consistently, avoid douching, and maintain healthy vaginal hygiene by avoiding scented products and wearing breathable cotton underwear. - Some evidence suggests that taking probiotic supplements or consuming probiotic-rich foods like yogurt may help maintain a healthy vaginal microbiome and potentially reduce the risk of BV. Patient Language: [place] Prescriptions: New metronidazole [Vandazole] 0.75 % (37.5mg/5 gram) gel 1 appful vaginal DAILY 5 Days Qty: 70 0RF fluconazole 150 mg tablet 150 mg PO ONCE Qty: 2 0RF Rx Instructions: May Repeat in 72 hours if symptoms are still present. No Action prednisone 20 mg tablet 40 mg PO DAILY 5 Days Qty: 10 0RF melatonin 10 mg capsule 10 mg PO QHS cholecalciferol (vitamin D3) 25 mcg (1,000 unit) tablet 25 mcg PO DAILY multivitamin [Daily Multi-Vitamin] Tablet 1 tablet PO DAILY Follow-up/Referrals: Trever Araya MD [Primary Care Provider] - Time of Disposition: 14:58
[2025-01-08 15:13] LABS: Bacterial Vaginosis NEGATIVE (NEGATIVE)
== END 2025-01-07 15:08 | disposition home or self-care (01) ==
PROVIDERS: PCP Emergency Medicine
DX: N76.0 Acute vaginitis (principal); E78.5 Hyperlipidemia, unspecified; Z90.711 Acquired absence of uterus with remaining cervical stump
CPT/HCPCS: 81513; 99213; G0463

== ENCOUNTER 2025-01-18 14:18 | Outpatient (CLI) | payer OTHER, BC, SELFPAY ==
--- NOTE | ~2025-01-18 | US_ITS ---
Pelvic ultrasound. Clinical History: Left ovarian cyst COMPARISON: 10/21/2024 Technique: Realtime transabdominal and transvaginal scanning of the pelvis was performed. Color flow Doppler and Doppler spectral analysis were performed. Findings: The uterus is absent, compatible with prior hysterectomy. The right ovary measures 2.5 x 2.0 x 1.9 cm. No significant right ovarian or adnexal mass is seen. The left ovary measures 4.0 x 5.5 x 3.6 cm. Mildly complex left ovarian cyst measures up to 4.1 cm in diameter. There is no evidence of free fluid in the cul de sac. Impression: 4.1 cm mildly complex left ovarian cyst is essentially stable from prior exam. This could reflect hem orrhagic cyst or endometrioma. Reviewed, dictated and finalized at [facility]. Impression: 4.1 cm mildly complex left ovarian cyst is essentially stable from prior exam. This could reflect hemorrhagic cyst or endometrioma.
== END 2025-01-18 14:19 | disposition home or self-care (01) ==
LOC: GOSHIMG 14:18
PROVIDERS: PCP Obstetrics & Gynecology Gynecology; Visit Provider Obstetrics & Gynecology Gynecology
DX: N83.292 Other ovarian cyst, left side (principal)
CPT/HCPCS: 76830; 76856

== ENCOUNTER 2025-02-07 09:58 | Outpatient (CLI) | payer OTHER, BC, SELFPAY ==
--- NOTE | ~2025-02-07 | MM_ITS ---
BILATERAL DIGITAL SCREENING MAMMOGRAM WITH JAYCEE INDICATION: Asymptomatic, referred for screening mammogram COMPARISON: 12/19/2023 and 05/23/2022 TECHNIQUE: Digital breast tomosynthesis craniocaudal and mediolateral oblique views of Both breasts w ere obtained with computer-aided detection to assist in interpretation of the study. FINDINGS: The breasts are heterogeneously dense, which may obscure small masses. No focal dominant mass, architectural distortion, or suspicious microcalcifications are identified. There are no features to suggest malignancy. IMPRESSION: No evidence of malignancy in the breast. Recommend continued screening mammography BI-RADS 1, NEGATIVE Reviewed, dictated and finalized at location B.
== END 2025-02-07 09:59 | disposition home or self-care (01) ==
LOC: MICIMG 09:59
PROVIDERS: PCP Nurse Practitioner; Visit Provider Nurse Practitioner
DX: Z12.31 Encounter for screening mammogram for malignant neoplasm of breast (principal)
CPT/HCPCS: 77063; 77067

== ENCOUNTER 2025-04-21 08:12 | Outpatient (CLI) | payer OTHER, BC, SELFPAY ==
--- NOTE | ~2025-04-21 | US_ITS ---
US right upper quadrant INDICATION: Cholesterolosis of the gallbladder PROCEDURE: Realtime right upper abdominal ultrasound. COMPARISON: No prior studies for comparison. FINDINGS: The pancreas is normal without focal mass or pancreatic ductal dilation. Liver echotexture is normal without focal mass or intrahepatic biliary dilatation. There is normal directional flow i n the portal vein. There is a gallbladder polyp measuring 5 mm. There is mild gallbladder wall thickening. Common bile duct measures 3.5 mm. No sonographic Raya's sign. IMPRESSION: 1: Gallbladder polyp measuring 5 mm. Mild gallbladder wall thickening. Consider acalculous cholecysti tis in the appropriate clinical setting Reviewed, dictated and finalized at location A. IMPRESSION: 1: Gallbladder polyp measuring 5 mm. Mild gallbladder wall thickening. Consider acalculous cholecystitis in the appropriate clinical setting
--- OUTSIDE RECORDS SUMMARY | 2025-04-21 08:15 | XMS_ITS | Clinical Summary ---
Author Organization [facility] Address [address] [place] [address] Care Team Providers Care Air Pollution Auditor Name Role Phone Trever Araya MD Primary Care Provider [phone] Source Comments [facility],non-owned Affiliates and Associated Physician Practices is amultiple site organization consisting of ambulatory clinics and hospital sitesin [place], [place], [place] and [place]. This disclosure is being madepursuant to the Care Everywhere program and may not contain all information available regarding this patient. Last updated 18.[facility] Allergies No known active allergies Medications * Be aware that medications may not be up to date on this document. Alwaysverify current medications with the patient. 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 Pulse 87 07/13/2018 9:33 AM BUSINESS PROJECT ANALYST Temperature 36.8 C (98.3 F) 07/13/2018 9:33 AM BUSINESS PROJECT 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 Respiratory Rate 16 01/27/2018 2:15 PM CDT Oxygen Saturation 98% 01/27/2018 2:15 PM CDT Inhaled Oxygen Concentration - - Weight 63.5 kg (140 lb) 01/27/2018 2:15 PM CDT Height 162.6 cm (5' 4) 01/27/2018 2:15 PM CDT Body Mass Index 24.03 01/27/2018 2:15 PM CDT Plan of Treatment Health Maintenance Due Date Last Done Comments LIPID TESTING 1982 MAMMOGRAM 1982 HIV SCREENING 1997 HEPATITIS C SCREENING 05/17/2000 DTAP/TDAP/TD VACCINES (1 - Tdap) 2001 HEPATITIS B VACCINE (1 of 3 - 19+ 3-dose series) 2001 HPV VACCINE (1 - 3-dose SCDM series) 2009 COVID-19 VACCINE ( - 2023-2 5 season) 2024 DEPRESSION SCREENING 09/08/2024 INFLUENZA VACCINE (#1) 2025 ZOSTER VACCINE (1 of 2) 2032 HIB VACCINE Aged Out No longer eligi ble based on patient's age to complete this topic MENINGOCOCCAL (Group B) VACC INE SHARED DECISION-MAKING Aged Out No longer eligibl e based on patient's age to complete this topic MENINGOCOCCAL GROUPS A/C/Y/W VACCINE Aged Out No longer eligible b ased on patient's age to complete this topic PNEUMOCOCCAL VACCINE Aged Out No long er eligible based on patient's age to complete this topic Insurance [facility] [address] Care Teams Air Pollution Auditor Relationship Specialty Start Date End Date Trever Araya MD [address] [facility] [address] [place] [address] PCP - General Family Medicine 01/27/18
--- OUTSIDE RECORDS SUMMARY | 2025-04-21 08:15 | XMS_ITS | Clinical Summary ---
Author Organization [facility] Address [address] [place] [address] Care Team Providers Care Air Director Name Role Phone Trever Araya MD Primary Care Provider [phone] Allergies No known active allergies Medications melatonin 10 mg tabletIndicatio ns:sleep Take 10 mg by mouth nightly Active aspirin 325 mg enteric coated tablet Take 1 tablet (325 mg total) by mouth daily 30 tablet 2 12/20/2020 Active Active Problems Problem Noted Date Diagnosed Date Unspecified fracture of left talus, initial encounter for closed fracture 12/18/2020 Overview (12/18/2020): Added automatically from request for surgery [id number] Fibroid, uterine 01/28/2018 Irregular menstrual bleeding 01/28/2018 Surgical History Surgery Date Site/Laterality Comments TUBAL LIGATION 09/08/2015 - 09/07/2016 CYSTOSCOPY W/ URETEROSCOPY W / LITHOTRIPSY PARTIAL HYSTERECTOMY 09/08/2015 - 09/07/2016 ABLATION uterine Medical History Medical History Date Comments Kidney stone during Family History Medical History Relation Name Comments Heart attack Father Anesthesia problems Neg Hx Relation Name Status Comments Father Social History Tobacco Use Types Packs/Day Years Used Date Smoking Tobacco: Never Smokeless Tobacco: Never Alcohol Use Standard Drinks/Week Comments Yes 1 (1 standard drink = 0.6 oz pur e alcohol) AUDIT-C Answer Date Recorded Q1: How often do you have a drink containing alc ohol? 2-4 times a month 12/19/2020 Q2: How many drinks containi ng alcohol do you have on a typical day when you are drinking? 1 or 2 12/19/2020 Q3: How often do you have si x or more drinks on one occasion? 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 Gender Identity Not on file Sexual Orientation Not on file Obstetrics History Last Filed Vital Signs Vital Sign Reading Time Taken Comments Blood Pressure 116/74 12/21/2020 6:35 PM CDT Pulse 83 12/21/2020 6:40 PM CDT Temperature 36.5 C (97.7 F) 12/21/2020 6:45 PM CDT Respiratory Rate 14 12/21/2020 6:40 PM CDT Oxygen Saturation 96% 12/21/2020 6:40 PM CDT Inhaled Oxygen Concentration - - Weight 63 kg (139 lb) 06/15/2021 1:25 PM CDT Height 162.6 cm (5' 4) 06/15/2021 1:25 PM CDT Body Mass Index 23.86 06/15/2021 1:25 PM CDT Plan of Treatment Not on file Medical Devices Implanted Type Area Director Nicu Device Identifier Shelf Expiration Date Model / Serial / Lot FilmLoop [id number] Screw Bone L20mm Od2.5mm Foot Ankle Cannulated Color Coded Osteotomy - S00 - [id number] Implanted:Qty: 1 on 12/21/2020 by Héctor Tucker MD at [facility] Screw Left: Foot [employer] [id number] / [employer] [id number] Medline Unite 2.5mm 18mm Cannulated Color Coded Headless Foot - S00 - [id number] Implanted:Qty: 1 on 12/21/2020 by Héctor Tucker MD at [facility] Screw Left: Foot [employer] [id number] / [employer] [id number] Screw Bone L16mm Od2mm Foot Ankle Cannulated Color Coded Osteotomy - S00 - [id number] Implanted:Qty: 1 on 12/21/2020 by Héctor Tucker MD at [facility] Screw Left: Foot [employer] [id number] / FilmLoop [id number] Washer Orthopedic 2/2.5 Mm Cannulated Screw Osteotomy - S00 - [id number] Implanted:Qty: 1 on 12/21/2020 by Héctor Tucker MD at [facility] Left: Foot [employer] [id number] / Explanted Type Area Director Nicu Device Identifier Shelf Expiration Date Model / Serial / Lot [employer] [id number] Miguel .035in 9in Trocar Wire Fixation Nonsterile - S00 - [id number] Explanted:Qty: 3 on 12/21/2020 by Héctor Tucker MD at [facility] Wire Left: Foot [employer] [id number] S / [employer] [id number] Miguel .45in 9in 1 Trocar Point Orthopedic Wire Fixation - S00 - [id number] Explanted:Qty: 1 on 12/21/2020 by Héctor Tucker MD at [facility] Wire Left: Foot [employer] [id number] S / Insurance [facility] [id number] [employer] [place] [address] [facility] [address] [place] [id number] [facility] CHOICE PLUS Advance Directives For more information, please contact: [phone] * Full Code (Latest Code Status on File) Date Activated Date Inactivated Comments 02/17/2018 12:14 PM 02/18/2018 12:43 PM Care Teams Air Director Relationship Specialty Start Date End Date Trever Araya MD PCP - General 01/14/18
== END 2025-04-21 08:13 | disposition home or self-care (01) ==
PROVIDERS: PCP Emergency Medicine; Visit Provider Surgery
DX: K82.4 Cholesterolosis of gallbladder (principal)
CPT/HCPCS: 76705

== ENCOUNTER 2025-05-14 23:53 | Emergency (ER) | payer OTHER, BC, SELFPAY ==
[2025-05-15 00:40] VITALS: BP 144/95; PULSE 99; RESP 16; TEMP 36.6; O2SAT 98
[2025-05-15 05:55] LABS: Add Urine Microscopic? YES; Appearance Urine Turbid (Clear); Glucose Urine UA Negative (Negative); Leukocyte Esterase Ur 2+ LEU/UL (Negative); Need Manual Microscopic Reviewed; Nitrate Urine Negative (Negative); Non Pathogenic Casts 0-2; Specific Grav Ur 1.022 (1.001-1.035)
--- NOTE | 2025-05-15 06:09 | ED.FEMALEGU ---
HPI - Female Genitourinary General Chief complaint: Urogenital-Female Stated complaint: vaginal discharge and swelling Time Seen by Provider: 05/15/25 04:57 History of Present Illness HPI Narrative: Patient is a 44-year-old female who presents emergency department this morning complaining of a vaginal yeast infection. Patient was seen at an outside facility 3 days ago and diagnosed with below vaginal candy does. Placed on Diflucan 3 ptosis every 2-3 days. At that time patient was using an anti-itch cream and she was informed that that was likely irritating her vaginal area. She was told to stop using that. She had STD testing which were all negative. Denies any additional symptoms or concerns at this time. Related Data Home Medications ?Medication ?Instructions ?Recorded ?Confirmed ?Last Taken ?Type multivitamin (Daily Multi-Vitamin 1 tablet PO DAILY 10/13/20 04/07/23 Unknown History tablet) cholecalciferol (vitamin D3) 25 25 mcg PO DAILY 04/07/23 04/07/23 Unknown History mcg (1,000 unit) tablet melatonin 10 mg capsule 10 mg PO QHS 04/07/23 04/07/23 Unknown History Allergies Allergy/AdvReac Type Severity Reaction Status Date / Time No Known Allergies Allergy Verified 05/14/25 23:54 Review of Systems Review of Systems: All systems are reviewed and are negative unless stated otherwise in the HPI. [facility] Past Medical History Medical History Hyperlipidemia Right bundle branch block Vertigo Nephrolithiasis Surgical History Surgical History History of lithotripsy History of partial hysterectomy History of bilateral tubal ligation Family History Family History Father Coronary artery disease COPD (chronic obstructive pulmonary disease) Mother Hyperlipidemia Other Diabetes mellitus Social History Social History Smoking status: Never smoker Alcohol intake: current Alcohol use details: Social alcohol use Substance use: never Living arrangements: with family Occupation/Education: occupation 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 HEENT: PERRL, no rhinorrhea, no post nasal drip, oropharynx clear. Neck: Trachea midline, no JVD, no lymphadenopathy. Cardiovascular: Regular rate and rhythm, no murmurs, rubs or gallops, no peripheral edema. Respiratory: Clear to auscultation bilaterally, no tachypnea, no wheezing, no rhonchi, no rubs, no respiratory distress. Abdomen: Soft, nontender, nondistended, no rebound, no guarding, no peritoneal signs. Genital: Exam performed with the presence of female nurse lumber sticker revealing inflamed labia majora and minora consistent with vulvovaginitis/vulvovaginal candidiasis. Musculoskeletal: No joint swelling or deformity, normal muscle tone. Skin: No rashes or petechia, no signs of infection. Psychiatric: Alert and oriented, normal behavior and judgment for situation. Neurological: Alert and oriented to person, place, and time. Follows all commands. No focal deficits, speech is clear and fluent. Course Vital Signs Vital signs: Vital Signs Temperature 97.8 F 05/15/25 00:40 Pulse Rate 99 05/15/25 00:40 Respiratory Rate 16 05/15/25 00:40 Blood Pressure 144/95 H 05/15/25 00:40 Pulse Oximetry 98 05/15/25 00:40 Oxygen Delivery Room Air 05/15/25 00:40 Temperature 97.8 F 05/15/25 00:40 Pulse Rate 99 05/15/25 00:40 Respiratory Rate 16 05/15/25 00:40 Blood Pressure 144/95 H 05/15/25 00:40 Pulse Oximetry 98 05/15/25 00:40 Oxygen Delivery Room Air 05/15/25 00:40 MDM - Female Genitourinary MDM Narrative Medical decision making narrative: The patient was evaluated by myself in the emergency department. History is obtained from patient who is an independent historian and physical exam was performed. External medical records were reviewed at this time. Urinalysis was obtained at this time revealed 21-50 white blood cells and 2+ leuk esterases. Patient was informed of these findings at bedside. I do believe that this is likely secondary to the vulvovaginal candy days and I do not recommend treating at this time as this could worsen her yeast infection. At this time, case was discussed with the on-call OBGYN Dr. Rosie Hunter at 0620 and he recommended lotrisone cream as the steroid properties will help with the inflammation. Instructed to finish the course of the Diflucan she was prescribed for a total of at least 3 doses. Differential diagnosis considerations include full vaginal candy days, cellulitis, STD. Comorbidities impacting this visit include none. I have evaluated and discussed social determinants of health with the patient that could potentially impact subsequent diagnosis and treatment plans. On repeat assessment of the patient, reevaluation revealed that the patient is doing well and is in no acute distress. Patient symptoms have improved since she arrived to our emergency department. Repeat vital signs were all reviewed and noted to be stable. Differential diagnosis and treatment plan were discussed with the patient at bedside. Patient agrees with discussion and after shared medical decision making agrees with discharge. All questions were answered to the patient's satisfaction. Patient will follow up with her OBGYN in 3-5 days. Patient was provided with strict return precautions and instructed to return to the emergency department if any new or worsening symptoms develop. The patient was discharged in stable condition. Lab Data Labs: Lab Results 05/15/25 Range/Units 05:38 Urine Color Yellow (Yellow) Urine Appearance Turbid H (Clear) Urine pH 5.5 (5.0-9.0) Ur Specific [place] 1.022 (1.001-1.035) Urine Protein Trace (Negative) mg/dL Urine Glucose (UA) Negative (Negative) mg/dL Urine Ketones Negative (Negative) mg/dL Ur Blood (Man) Negative (Negative) Urine Nitrate Negative (Negative) Urine Bilirubin Negative (Negative) Urine Urobilinogen 1.0 (<2.0) mg/dL Add Ur Microanalysis Reviewed Leukocyte Esterase Rfl 2+ H (Negative) YOLANDA/UL Urine RBC 21-50 H (0-2) /hpf Urine WBC 21-50 H (0-3) /hpf Ur Squamous Epith Cells Occasional (Few) /hpf Urine Bacteria Rare /hpf Urine Casts 0-2 Discharge Plan Discharge Clinical Impression: Acute vulvovaginitis Patient Disposition: Home Condition: Stable Instructions: Antibiotic Form, Yeast Infection (ED) Additional Instructions: Please use the cream that you were provided in the emergency department per OB GYNs recommendation as instructed. Follow-up with your OB Gyne within the next 3 days. Return to the ED if any new or worsening symptoms develop. Patient Language: Surinamese Prescriptions: No Action metronidazole [Vandazole] 0.75 % (37.5mg/5 gram) gel 1 appful vaginal DAILY 5 Days Qty: 70 0RF fluconazole 150 mg tablet 150 mg PO ONCE Qty: 2 0RF Rx Instructions: May Repeat in 72 hours if symptoms are still present. prednisone 20 mg tablet 40 mg PO DAILY 5 Days Qty: 10 0RF melatonin 10 mg capsule 10 mg PO QHS cholecalciferol (vitamin D3) 25 mcg (1,000 unit) tablet 25 mcg PO DAILY multivitamin [Daily Multi-Vitamin] Tablet 1 tablet PO DAILY Follow-up/Referrals: Trever Araya MD [Primary Care Provider, Family Practice] Pepper Acosta MD [Physician, VIDEO G[employer] MECHANIC] - 3 Days Time of Disposition: 06:22
[2025-05-15] MEDS: BETAMETHASONE/CLOTRIMAZOLE CREAM 45 GM TUBE 1 APPLIC TOPICAL (07:00)
== END 2025-05-15 07:13 | disposition home or self-care (01) ==
PROVIDERS: Emergency Provider Emergency Medicine; PCP Emergency Medicine
DX: B37.31 Acute candidiasis of vulva and vagina (principal); E78.5 Hyperlipidemia, unspecified; Z87.442 Personal history of urinary calculi; Z90.711 Acquired absence of uterus with remaining cervical stump
CPT/HCPCS: 81001; 87086; 99283; A9270